=== PATIENT | female | born 1925 | race Caucasian/White ===

== ENCOUNTER 2016-10-14 16:01 | Inpatient (IN) | payer MEDICARE, BC ==
[2016-10-14] MEDS ORDERED: NS 0.9% 1000 ML* 500 ML IV ONE (16:54)
[2016-10-14] MEDS ORDERED: Acetaminophen TAB* 325 MG PO ONE (16:54)
--- NOTE | 2016-10-14 17:32 | RAD ---
HISTORY: Altered mental status COMPARISONS: March 15, 2015 TECHNIQUE: Multiple contiguous axial CT scans were obtained of the head without intravenous contrast. FINDINGS: HEMORRHAGE/INFARCT: There is no hemorrhage or acute infarct. MASSES/SHIFT: There is no mass or shift. EXTRA-AXIAL SPACES: There are no extra-axial fluid collections. SULCI AND VENTRICLES: There is diffuse and proportional enlargement of the sulci and ventricles. CEREBRUM: There is hypoattenuation of the periventricular and subcortical white matter. BRAINSTEM: There are no focal parenchymal abnormalities. CEREBELLUM: There are no focal parenchymal abnormalities. VESSELS: There is calcification of the cavernous segments of the internal carotid arteries bilaterally and of the distal vertebral arteries bilaterally. PARANASAL SINUSES: The paranasal sinuses are clear. ORBITS: The orbits are unremarkable. BONES AND SOFT TISSUE: No bone or soft tissue abnormalities are noted. OTHER: None IMPRESSION: NO ACUTE INTRACRANIAL PATHOLOGY. DIFFUSE INVOLUTIONAL CHANGE WITH CHRONIC SMALL VESSEL ISCHEMIC CHANGES.
--- NOTE | 2016-10-14 17:42 | RAD ---
HISTORY: Altered mental status COMPARISONS: November 01, 2013 VIEWS: 2: Frontal and lateral views of the chest. FINDINGS: CARDIOMEDIASTINAL SILHOUETTE: The cardiomediastinal silhouette is normal. KAL: The kal are normal. PLEURA: The costophrenic angles are sharp. No pleural abnormalities are noted. LUNG PARENCHYMA: There is hyperinflation with flattening of the diaphragm and expansion of the AP diameter of the chest. ABDOMEN: The upper abdomen is clear. There is no subphrenic gas. BONES AND SOFT TISSUES: There is diffuse osteopenia. Degenerative changes are noted of the shoulder and spine OTHER: None. IMPRESSION: HYPERINFLATION, CONSISTENT WITH COPD. NO ACTIVE CARDIOPULMONARY DISEASE.
[2016-10-14 18:21] LABS: Hematocrit 41 % (35-47); Hemoglobin 13.6 g/dl (12.0-16.0); Mean Corpuscular HGB Conc 33 g/dl (31-36); Mean Corpuscular Hemoglobin 31 pg (27-31); Mean Corpuscular Volume 93 fL (80-97); Mean Platelet Volume 10 um3 (7.4-10.4); Red Blood Count 4.41 10^6/ul (4.0-5.4); Red Cell Distribution Width 15 % (10.5-15); White Blood Count 9.4 10^3/ul (3.5-10.8)
[2016-10-14 18:39] LABS: ALT 9 U/L (7-52); AST 22 U/L (13-39); Albumin 3.9 g/dL (3.2-5.2); Alkaline Phosphatase 65 U/L (34-104); Anion Gap 9 mmol/L (2-11); BUN/Creatinine Ratio 21.9 (8-20); Blood Urea Nitrogen 14 mg/dL (6-24); C Reactive Protein 2.74 mg/L (< 5.00); CO2 Carbon Dioxide 26 mmol/L (22-32); Calcium 9.6 mg/dL (8.6-10.3); Chloride 100 mmol/L (101-111); EGFR African American 112.4 (>60); EGFR Non-African American 87.4 (>60); Globulin 3.5 g/dL (2-4); Glucose 83 mg/dL (70-100); Lipase < 10 U/L (11.0-82.0); Potassium 3.8 mmol/L (3.5-5.0); Sodium 135 mmol/L (133-145); Total Protein 7.4 g/dL (6.4-8.9)
[2016-10-14 19:09] LABS: Urine Bacteria 1+ (Absent); Urine Bilirubin Negative (Negative); Urine Glucose Negative (Negative); Urine Nitrite Negative (Negative)
[2016-10-14] MEDS ORDERED: Levofloxacin TAB* 500 MG PO ONE (20:15)
[2016-10-14] MEDS ORDERED: Levofloxacin 500 MG IVPREMIX(* 500 MG/100 ML BAG IVPB ONE (20:25)
--- NOTE | 2016-10-14 20:34 | ED ---
shalom Bang Timothy, nichole for Meet Griffith on 10/14/16 at 2027 . Progress - Progress Note Progress Note: Susanna Reno is an 89 yo female presenting to [facility] with confusion, speech impairment, and generally not herself. Her MHx includes DM, CAD, anxiety. Pt was signed out by Dr. Xie pending UA results and disposition. Re-Evaluation - Re-Evaluation First Eval Re-Evaluation Time: 20:27 Change: Unchanged Comment: Discussed results of UA with Pt and family. Family would prefer if Pt is admitted for observation tonight. Course/Dx - Course Course Of Treatment: Susanna Reno is an 89 yo female presenting to [facility] with confusion, speech impairment, and generally not herself. Pt medication list reviewed this visit. After clinical examination and discussion with Dr. Huerta and Pt family, Pt will be admitted to [facility] for further observation, evaluation, and Tx of UTI, urosepsis, AMS. - Diagnoses Provider Diagnoses: UTI (urinary tract infection), urosepsis, Altered mental status - Provider Notifications Discussed Care Of Patient With: Yuri Huerta - Discussed Pt condition, accepts Pt for admission Time Discussed With Above Provider: 20:22 Instructed by Provider To: Admit As Inpatient The documentation as recorded by the shalom rivera Timothy accurately reflects the service I personally performed and the decisions made by , Meet Griffith.
[2016-10-14] MEDS ORDERED: Artificial Tears* 15 ML BTL BOTH EYES PRN (21:50)
[2016-10-14] MEDS ORDERED: Loperamide CAP* 2 MG PO PRN (21:50)
[2016-10-14] MEDS ORDERED: Acetaminophen TAB* 325 MG PO PRN (21:50)
[2016-10-14] MEDS ORDERED: Magnesium Hydroxide LIQ* 30 ML UDC PO PRN (21:50)
[2016-10-14] MEDS: NS 0.9% 1000 ML* 1,000 ML IV SCH (23:44)
[2016-10-14] MEDS: Nystatin TOP POWDER* 15 GM BTL TOPICAL SCH (23:49)
--- NOTE | 2016-10-15 00:40 | HP ---
CC: Alexis Anaya MD * HISTORY AND PHYSICAL: DATE OF ADMISSION: 10/14/16 PRIMARY CARE PHYSICIAN: Alexis Anaya MD ATTENDING PHYSICIAN: Dr. Yuri Huerta * (dictated by Margaret William NP). CHIEF COMPLAINT: Confusion, speech impairment and is not feeling herself. HISTORY OF PRESENT ILLNESS: Ms. Reno is an 89-year-old female with a past medical history significant for diabetes mellitus, coronary artery disease, status post [place], anxiety, atrial fibrillation, glaucoma, iron deficiency anemia, chronic kidney disease stage 3, hyperlipidemia, hypothyroidism, congestive heart failure, history of C2 cervical fracture, uterine cancer and hypertension , who presents to the emergency room from [facility] for altered mental status. The patient's daughter states that she noticed that her mother was disoriented today, complaining of a headache, had had some vomiting, and loss of appetite. The patient denied any fever, chills, chest pain and shortness of breath. She did report some lightheadedness and dizziness earlier today. She also reports burning with urination and that she has a yeast infection. She states that she has had a poor appetite, but has been trying to drink fluids. Due to concern for the patient's health status, EMS was called. Upon EMS arrival, it is felt that the patient possibly had some slurred speech, but no other neurological deficits. The patient was brought to the emergency room for further evaluation. While in the emergency room, the patient labs that were significant for slightly low platelet count of 138, which is consistent with her previous results. She had no leukocytosis. She was afebrile. Her chloride was slightly low at 100 and her BUN and creatinine ratio was 21.9. The patient had a BMP of 179. She had a urinalysis significant for leukocyte esterase 1+, wbc' s 3+, squamous epithelial cells present and bacteria 1+. The patient had a chest x-ray showing hyperinflation consistent with COPD. No active cardiopulmonary disease. The patient had a brain CT showing no acute intracranial pathology. The patient had an EKG showing an atrial fibrillation with a rate of 99. The patient received 500 mL of normal saline and Levaquin. Hospitalists were asked evaluate the patient for admission. PAST MEDICAL HISTORY: 1. Diabetes mellitus. 2. Coronary artery disease. 3. Anxiety. 4. Atrial fibrillation. 5. Vitamin D deficiency. 6. Glaucoma. 7. Iron deficiency anemia. 8. GERD. 9. Chronic kidney disease stage 3. 10. Hyperlipidemia. 11. Congestive heart failure 12. Hypothyroidism 13. Uterine cancer. 14. C2 cervical spine fracture. 15. Hypertension. 16. History of NSTEMI. 17. DVT. PAST SURGICAL HISTORY: 1. Status post appendectomy. 2. Status post cholecystectomy. 3. Status post right hip ORIF. 4. Status post hysterectomy and oophorectomy. 5. Status post [place] filter placement. HOME MEDICATIONS: Include: 1. Acetaminophen 650 mg oral daily at bedtime as needed. 2. Aspirin 81 mg oral daily. 3. Atorvastatin 10 mg oral daily at bedtime. 4. Isosorbide mononitrate ER 60 mg oral daily at bedtime. 5. Lantus insulin 12 units subcutaneous daily at bedtime. 6. Levothyroxine 100 mcg oral daily. 7. Omeprazole 20 mg oral daily. 8. Artificial Tear ointment applied to both eyes at bedtime. 9. Timolol 0.5% ophthalmic solution 1 drop to both eyes daily. 10. Travoprost Z 0.004% one drop to both eyes daily at bedtime. 11. Vitamin B12 1000 mcg oral every other day. 12. Eliquis 5 mg oral twice daily. 13. Vitamin D 50,000 units oral monthly. 14. Metformin 500 mg oral twice daily. 15. Artificial Tears 1 drop to both eyes every 2 hours as needed for dry eye. 16. Tums 1000 mg oral daily with meals. 17. Milk of magnesia 30 mL oral daily as needed for constipation. 18. Triamcinolone 0.1% cream apply topical every evening. 19. Nystatin powder applied topical 3 times daily. 20. Imodium 2 mg oral twice daily as needed for loose stools. ALLERGIES: PENICILLIN and SULFA. FAMILY HISTORY: The patient has a sister with a history of coronary artery disease and diabetes mellitus. The patient had a daughter who passed from metastatic breast cancer and a second daughter with a history of breast cancer. SOCIAL HISTORY: The patient denies smoking, alcohol, recreational drug use. She resides at [facility]. The patient's daughter, Arielle Rutherford, will be her surrogate decision maker in the event that she is unable to make decisions for herself. REVIEW OF SYSTEMS: I performed a 14-point review of systems. All the pertinent positives and negatives are mentioned in the history of present illness. The remaining review of systems is negative. PHYSICAL EXAMINATION GENERAL APPEARANCE: The patient is alert, pleasant, appears to be in no acute distress. VITAL SIGNS: Temperature 97.7, heart rate 86, respiratory rate 13, O2 sat 95% on room air, blood pressure 147/69. HEENT: Normocephalic, atraumatic. Pupils are equal and reactive to light. Extraocular movements are intact. RESPIRATORY: There is no accessory muscle use. Lungs are clear to auscultation bilaterally. CARDIOVASCULAR: Regular rate. S1 and S2 present. The patient has a grade 3/6 systolic murmur heard best at the left upper sternal border. ABDOMEN: Soft, nontender, nondistended. There are bowel sounds present x4. EXTREMITIES: There is no lower extremity edema. DP and PT pulses are 2+ and symmetric. MUSCULOSKELETAL: There is no clubbing or cyanosis noted. The patient exhibits good strength in all extremities. NEUROLOGICAL: The patient is alert and oriented x3. At times does have some slightly slurred speech and is difficult to understand. Cranial nerves II through XII are grossly intact. PSYCHOLOGICAL: Calm and cooperative. SKIN: The patient has a yeast-like rash to her perineal area. DIAGNOSTIC STUDIES/LABORATORY DATA: Sodium 135, potassium 3.8, chloride 100, CO2 26, BUN 14, creatinine 0.64, and glucose 83. White blood cell count 9.4, hemoglobin 13.6, hematocrit 41, and platelet count 138. Urinalysis has 2+ protein, trace ketones, 1+ leukocyte esterase, 3+ wbc's, squamous epithelial cells present, and 1+ bacteria. EKG shows an atrial fibrillation with a rate of 99. This EKG is similar to previous EKGs from 09/09/15. Chest x-ray from today. Radiologist's impression: Hyperinflation consistent with COPD, no active cardiopulmonary disease. Brain CT from today. Radiologist's impression: No active intracranial pathology, diffuse involutional changes with chronic small vessel ischemic changes. IMPRESSION: Ms. Reno is an 89-year-old female with a past medical history significant for hypertension; hyperlipidemia; coronary artery disease, status post non-ST elevation myocardial infraction; atrial fibrillation in Eliquis; hypothyroidism; diabetes mellitus; chronic kidney disease stage 3; and history of C2 cervical fracture who presents to the emergency room with concern for confusion, generally is not feeling well and was found to have a urinary tract infection. She will be admitted as an observation for urinary tract infection. ASSESSMENT AND PLAN: 1. Urinary tract infection. The patient will receive some gentle IV hydration overnight. She will be continued on Levaquin. The patient is currently afebrile and has no leukocytosis. 2. Altered mental status. I suspect this is secondary to the patient's underlying urinary tract infection. Per her family, she is getting closer to her baseline at this point. Her head CT was negative. 4. Thrombocytopenia. The patient appears to be at her baseline. 5. Diabetes mellitus. We will continue the patient on her home Lantus and metformin. She will have fingersticks at takes a.c. and h.s. 6. History of coronary artery disease and status post myocardial infraction. The patient will be continued on her home aspirin, statin, and isosorbide mononitrate. 7. Atrial fibrillation. The patient is in a controlled atrial fibrillation. She will be continued on her home Eliquis. 8. Glaucoma. The patient will be continued on her home Travatan eye drops. 9. Hypothyroidism. The patient will be continued on her home levothyroxine. 10. Yeast infection. We will continue the patient on Nystatin topical powder three times daily. 11. History of hypertension. The patient's blood pressures are controlled at this time. For now, we will continue her Imdur. 12. Chronic kidney disease, stage 3. The patient's creatinine is at baseline. 13. Fluids, electrolytes, and nutrition. The patient will be on a consistent carbohydrate diet. 14. Code status: DNR/DNI. 15. DVT prophylaxis. The patient is a highest risk and will be continued on her home Eliquis. 16. Disposition: Observation for urinary tract infection. TIME SPENT: Time for this admission was 60 minutes, greater than half of that was spent with the patient and family discussing medications, past medical history, and events leading up to her arrival today and performing the physical examination. The case has been reviewed with the attending, Dr. Huerta, who agrees with the plan of care. Reviewed by AILYN MUNOZ 10/15/16 1357 [id number]/[facility] #: [id number] KENDAL
[2016-10-15] MEDS: Levothyroxine TAB* 100 MCG TAB PO SCH (05:54)
[2016-10-15 06:42] LABS: Hematocrit 38 % (35-47); Hemoglobin 12.5 g/dl (12.0-16.0); Mean Corpuscular HGB Conc 33 g/dl (31-36); Mean Corpuscular Hemoglobin 31 pg (27-31); Mean Corpuscular Volume 94 fL (80-97); Mean Platelet Volume 10 um3 (7.4-10.4); Red Blood Count 4.07 10^6/ul (4.0-5.4); Red Cell Distribution Width 15 % (10.5-15); White Blood Count 6.9 10^3/ul (3.5-10.8)
[2016-10-15 07:03] LABS: BUN/Creatinine Ratio 24.3 (8-20); Calcium 8.6 mg/dL (8.6-10.3); EGFR African American 101.3 (>60); EGFR Non-African American 78.8 (>60); Potassium 3.6 mmol/L (3.5-5.0)
--- NOTE | 2016-10-15 07:58 | PN ---
Subjective Date of Service: 10/15/16 Interval History: Ms. Reno reports that she continues to feel a bit "odd" in her head but she does feel better overall. She reports frequent urination but denies dysuria. She denies chest pain, SOB, nausea, or abdominal pain. Objective Active Medications: Acetaminophen (Tylenol Tab*) 650 mg PO Q4H PRN Apixaban (Eliquis*) 5 mg PO BID RONALD Artificial Tears (Lacrilube Oint*) 1 applic BOTH EYES BEDTIME RONALD Aspirin (Aspirin Low Dose Tab*) 81 mg PO DAILY RONALD Atorvastatin Calcium (Lipitor*) 10 mg PO BEDTIME RONALD Calcium Carbonate (Tums*) 1,000 mg PO AC RONALD Levofloxacin/Dextrose (Levaquin 500 Mg Ivpremix(*)) 500 mg in 100 mls @ 100 mls /hr IVPB Q24H RONALD Sodium Chloride (Ns 0.9% 1000 Ml*) 1,000 mls @ 75 mls/hr IV PER RATE [facility] Insulin Glargine (Lantus(*)) 12 units SUBCUT BEDTIME RONALD Isosorbide Mononitrate (Imdur Er Tab*) 60 mg PO BEDTIME RONALD Latanoprost (Xalatan 0.005%*) 1 drop BOTH EYES BEDTIME RONALD Levothyroxine Sodium (Synthroid Tab*) 100 mcg PO 0600 RONALD Loperamide HCl (Imodium Cap*) 2 mg PO BID PRN Magnesium Hydroxide (Milk Of Magnesia Liq*) 30 ml PO DAILY PRN Metformin HCl (Glucophage*) 500 mg PO BID WITH MEALS RONALD Nystatin (Nystatin Top Powder*) 1 applic TOPICAL TID RONALD Omeprazole (Prilosec Cap*) 20 mg PO DAILY@0730 RONALD Polyvinyl Alcohol (Polyvinyl Alcohol 1.4% Opth*) 1 drop BOTH EYES Q2H PRN Timolol Maleate (Timoptic Ophth.Soln 0.25%) 2 drop BOTH EYES DAILY [facility] Vital Signs 10/14/16 10/14/16 10/14/16 22:30 23:25 23:35 Temperature 97.4 F 97.4 F Pulse Rate 75 82 82 Respiratory 19 17 Rate Blood Pressure 108/57 109/75 109/75 (mmHg) O2 Sat by Pulse 96 98 98 Oximetry 10/15/16 10/15/16 03:31 07:45 Temperature 97.4 F Pulse Rate 70 69 Respiratory 16 16 Rate Blood Pressure 131/77 123/69 (mmHg) O2 Sat by Pulse 97 97 Oximetry Oxygen Devices in Use Now: None Appearance: Elderly female lying in bed in NAD Eyes: No Scleral Icterus Ears/Nose/Mouth/Throat: Mucous Membranes Moist Neck: Trachea Midline Respiratory: Symmetrical Chest Expansion and Respiratory Effort, Clear to Auscultation Cardiovascular: NL Sounds; No Murmurs; No JVD, No Edema Abdominal: NL Sounds; No Tenderness; No Distention Lymphatic: No Cervical Adenopathy Extremities: No Edema Skin: No Rash or Ulcers Neurological: NL Muscle Strength and Tone, - - A bit lethargic but awakens easily to voice, oriented x 3 Nutrition: Taking PO's Result Diagrams: 10/15/16 06:15 10/15/16 06:15 Microbiology and Other Data: Microbiology 10/14/16 23:43 Nasal Screen MRSA (PCR)(DEEPALI) - Final Nasal Mrsa Negative Assess/Plan/Problems-Billing Assessment: Ms. Reno is an 89 yo female with a PMH of DM, CAD, CHF who was admitted on with UTI. - Patient Problems (1) UTI (urinary tract infection) Comment: - WBC normal, afebrile. - Continue levaquin. (2) CAD (coronary artery disease) Comment: - Asymptomatic. - Continue ASA, atorvastatin, isosorbide BB with hold parameters. (3) HTN (hypertension) Comment: - BP well controlled. - Only on isosorbide outpatient. (4) Type 2 diabetes mellitus Comment: - Hold metformin. - Continue lantus with lispro SSI coverage with meals. (5) CKD (chronic kidney disease) Comment: - creatinine normal (6) Hypothyroidism Comment: - TSH 0.23. - Continue levothyroxine. (7) Afib Comment: - Rate controlled. - Continue eliquis. (8) DNR (do not resuscitate) (9) DVT prophylaxis Comment: - Continue eliquis. Status and Disposition: OBV to inpatient with need for additional night in hospital with continued AMS. Anticipate discharge back to [facility] when medically stable.
[2016-10-15] MEDS ORDERED: metFORMIN* 500 MG TAB PO SCH (08:00)
[2016-10-15] MEDS: Calcium Carbonate CHEW TAB* 500 MG (TUMS) PO SCH ×3 (09:25→18:32)
[2016-10-15] MEDS: Apixaban* 5 MG TAB PO SCH ×2 (09:29→20:14)
[2016-10-15] MEDS: Aspirin Low Dose CHEW TAB* 81 MG PO SCH (09:29)
[2016-10-15] MEDS: Omeprazole CAP* 20 MG PO SCH (09:29)
[2016-10-15] MEDS: Timolol 0.25% OPHTH.SOLN* BTL BOTH EYES SCH (09:30)
[2016-10-15] MEDS: Nystatin TOP POWDER* 15 GM BTL TOPICAL SCH ×3 (09:30→20:15)
[2016-10-15] MEDS: NS 0.9% 1000 ML* 1,000 ML IV SCH (15:30)
--- NOTE | 2016-10-15 19:48 | ED ---
Mikal Bang Alfonso, scribed for Hernando Xie MD on 10/14/16 at 1656 . Altered Mental Status - HPI Summary HPI Summary: This patient is an 89 year old F BIBA to [facility] accompanied by son and daughter for AMS since noon today. Symptoms aggravated and alleviated by nothing. Her children report disorientation, confusion, headache, vomiting, and loss of appetite. PMHx of DM, CAD, and anxiety. 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 Timing: Constant, Lasting Hours - Noon Severity Initially: Moderate Severity Currently: Moderate Character: Confusion Aggravating Factor(s): Nothing Alleviating Factor(s): Nothing Associated Signs And Symptoms: Positive: Vomiting - Allergies/Home Medications Allergies/Adverse Reactions: Allergies Allergy/AdvReac Type Severity Reaction Status Date / Time Penicillins Allergy Swelling Verified 05/09/15 14:44 Sulfa Antibiotics Allergy Swelling Verified 05/09/15 14:44 Home Medications: Home Medications Apixaban* [Eliquis*] 5 mg PO BID 10/14/16 [History Confirmed 10/14/16] Artificial Tear Ointment [Refresh P.m] 1 oin BOTH EYES BEDTIME 10/14/16 [ History Confirmed 10/14/16] Artificial Tears* 15 ML BTL [Polyvinyl Alcohol 1.4% OPTH*] 1 drop BOTH EYES Q2H PRN 10/14/16 [History Confirmed 10/14/16] Calcium Carbonate CHEW TAB* [Tums*] 1,000 mg PO AC 10/14/16 [History Confirmed 10/14/16] Insulin GLARGINE(*) [Lantus(*)] 12 units SUBCUT BEDTIME 10/14/16 [History Confirmed 10/14/16] Loperamide CAP* [Imodium CAP*] 2 mg PO BID PRN 10/14/16 [History Confirmed 10/14] Magnesium Hydroxide LIQ* [Milk of Magnesia LIQ*] 30 ml PO DAILY PRN 10/14/16 [ History Confirmed 10/14/16] Nystatin TOP POWDER* 1 applic TOPICAL TID 10/14/16 [History Confirmed 10/14/16] Omeprazole CAP* [Prilosec CAP* 20 MG] 20 mg PO DAILY 10/14/16 [History Confirmed 10/14/16] Triamcinolone 0.1% CREAM(NF) [Kenalog 0.1% Cream (NF)] 1 applic TOPICAL QPM [History Confirmed 10/14/16] metFORMIN* [Glucophage 500 MG TAB *] 500 mg PO BID 10/14/16 [History Confirmed 10/14/16] PMH/Surg Hx/FS Hx/Imm Hx Endocrine/Hematology History: Reports: Hx Diabetes, Hx Thyroid Disease Denies: Hx Anemia Cardiovascular History: Reports: Hx Angina, Hx Coronary Artery Disease, Hx Hypercholesterolemia - Hyperlipidemia, Hx Hypertension, Hx Myocardial Infarction , Hx Rheumatic Fever - per daughter, Other Cardiovascular Problems/Disorders - Blockages that are unstentable Respiratory History: Reports: Hx Pneumonia GI History: Reports: Hx Gall Bladder Disease - cholecystectomy, Hx Irritable Bowel History: Reports: Hx Acute Renal Failure - 05/2013, Hx Chronic Renal Failure - CKD Stage 3 Musculoskeletal History: Reports: Hx Arthritis, Hx Osteoporosis - right hip fx Sensory History: Reports: Hx Contacts or Glasses, Hx Glaucoma, Hx Hearing Problem Opthamlomology History: Reports: Hx Contacts or Glasses, Hx Glaucoma Neurological History: Reports: Other Neuro Impairments/Disorders - C2 fx Psychiatric History: Reports: Hx Anxiety - Cancer History Cancer Type, 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 hysterectomy , oophrectomy,APPENDECTOMY Hx Anesthesia Reactions: No Infectious Disease History: No Infectious Disease History: Denies: Traveled Outside the [place] in Last 30 Days - Family History Known Family History: Positive: Cardiac Disease, Other - BREAST CA - Social History Alcohol Use: None Hx Substance Use: No Substance Use Type: Reports: None Hx Tobacco Use: No Smoking Status (MU): Never Smoked Tobacco Review of Systems Positive: Vomiting Neurological: Other - Positive AMS, disorientation, confusion, headache, and loss of appetite. All Other Systems Reviewed And Are Negative: Yes Physical Exam - Summary Physical Exam Summary: VITAL SIGNS: Reviewed. GENERAL: Patient is an elderly female who is lying comfortable in the stretcher. Patient is not in any acute respiratory distress. HEAD AND FACE: No signs of trauma. No ecchymosis, hematomas or skull depressions. No sinus tenderness. EYES: PERRLA, EOMI x 2, No injected conjunctiva, no nystagmus. EARS: Hearing grossly intact. Ear canals and tympanic membranes are within normal limits. MOUTH: Oropharynx within normal limits. NECK: Supple, trachea is midline, no adenopathy, no JVD, no carotid bruit, no c- spine tenderness, neck with full ROM. CHEST: Symmetric, no tenderness at palpation LUNGS: Clear to auscultation bilaterally. No wheezing or crackles. CVS: Regular rate and rhythm, S1 and S2 present, no murmurs or gallops appreciated. ABDOMEN: Soft, non-tender. No signs of distention. No rebound no guarding, and no masses palpated. Bowel sounds are normal. EXTREMITIES: FROM in all major joints, no edema, no cyanosis or clubbing. NEURO: Alert. Not oriented. No acute neurological deficits. Speech is normal and follows commands. SKIN: Dry and warm Triage Information Reviewed: Yes Vital Signs On Initial Exam: Initial Vitals Temp Pulse Resp BP Pulse Ox 97.7 F 91 16 165/101 100 10/14/16 16:30 10/14/16 16:30 10/14/16 16:30 10/14/16 16:30 10/14/16 16:30 Vital Signs Reviewed: Yes Diagnostics - Vital Signs Vital Signs Temp Pulse Resp BP Pulse Ox 10/14/16 16:49 97.7 F 91 16 165/103 99 10/14/16 16:30 97.7 F 91 16 165/101 100 - Laboratory Lab Results: Lab Results 10/14/16 10/14/16 10/14/16 Range/Units 18:01 18:01 18:01 WBC 9.4 (3.5-10.8) 10^3/ul RBC 4.41 (4.0-5.4) 10^6/ul Hgb 13.6 (12.0-16.0) g/dl Hct 41 (35-47) % MCV 93 (80-97) fL MCH 31 (27-31) pg MCHC 33 (31-36) g/dl RDW 15 (10.5-15) % Plt Count 138 L (150-450) 10^3/ul MPV 10 (7.4-10.4) um3 Neut % (Auto) 69.6 (38-83) % Lymph % (Auto) 22.4 L (25-47) % [place] % (Auto) 5.5 (1-9) % Eos % (Auto) 1.8 (0-6) % Baso % (Auto) 0.7 (0-2) % Absolute Neuts (auto) 6.5 (1.5-7.7) 10^3/ul Absolute Lymphs (auto) 2.1 (1.0-4.8) 10^3/ul Absolute Monos (auto) 0.5 (0-0.8) 10^3/ul Absolute Eos (auto) 0.2 (0-0.6) 10^3/ul Absolute Basos (auto) 0.1 (0-0.2) 10^3/ul Absolute Nucleated RBC 0.01 10^3/ul Nucleated RBC % 0.1 Sodium 135 (133-145) mmol/L Potassium 3.8 (3.5-5.0) mmol/L Chloride 100 L (101-111) mmol/L Carbon Dioxide 26 (22-32) mmol/L Anion Gap 9 (2-11) mmol/L BUN 14 (6-24) mg/dL Creatinine 0.64 (0.51-0.95) mg/dL Est GFR ( Amer) 112.4 (>60) Est GFR (Non-Af Amer) 87.4 (>60) BUN/Creatinine Ratio 21.9 H (8-20) Glucose 83 (70-100) mg/dL POC Glucose (mg/dL) (74-106) mg/dL Lactic Acid 1.5 (0.5-2.0) mmol/L Calcium 9.6 (8.6-10.3) mg/dL Total Bilirubin 0.90 (0.2-1.0) mg/dL AST 22 (13-39) U/L ALT 9 (7-52) U/L Alkaline Phosphatase 65 (34-104) U/L C-Reactive Protein 2.74 (< 5.00) mg/L B-Natriuretic Peptide ( - 100) pg/mL Total Protein 7.4 (6.4-8.9) g/dL Albumin 3.9 (3.2-5.2) g/dL Globulin 3.5 (2-4) g/dL Albumin/Globulin Ratio 1.1 (1-3) Lipase < 10 L (11.0-82.0) U/L Urine Color Urine Appearance Urine pH (5-9) Ur Specific [place] (1.010-1.030) Urine Protein (Negative) Urine Ketones (Negative) Urine Blood (Negative) Urine Nitrate (Negative) Urine Bilirubin (Negative) Urine Urobilinogen (Negative) Ur Leukocyte Esterase (Negative) Urine WBC (Auto) (Absent) Urine RBC (Auto) (Absent) Ur Squamous Epith Cells (Absent) Urine Bacteria (Absent) Urine Glucose (Negative) 10/14/16 10/14/16 10/14/16 Range/Units 18:01 18:55 23:55 WBC (3.5-10.8) 10^3/ul RBC (4.0-5.4) 10^6/ul Hgb (12.0-16.0) g/dl Hct (35-47) % MCV (80-97) fL MCH (27-31) pg MCHC (31-36) g/dl RDW (10.5-15) % Plt Count (150-450) 10^3/ul MPV (7.4-10.4) um3 Neut % (Auto) (38-83) % Lymph % (Auto) (25-47) % [place] % (Auto) (1-9) % Eos % (Auto) (0-6) % Baso % (Auto) (0-2) % Absolute Neuts (auto) (1.5-7.7) 10^3/ul Absolute Lymphs (auto) (1.0-4.8) 10^3/ul Absolute Monos (auto) (0-0.8) 10^3/ul Absolute Eos (auto) (0-0.6) 10^3/ul Absolute Basos (auto) (0-0.2) 10^3/ul Absolute Nucleated RBC 10^3/ul Nucleated RBC % Sodium (133-145) mmol/L Potassium (3.5-5.0) mmol/L Chloride (101-111) mmol/L Carbon Dioxide (22-32) mmol/L Anion Gap (2-11) mmol/L BUN (6-24) mg/dL Creatinine (0.51-0.95) mg/dL Est GFR ( Amer) (>60) Est GFR (Non-Af Amer) (>60) BUN/Creatinine Ratio (8-20) Glucose (70-100) mg/dL POC Glucose (mg/dL) 101 (74-106) mg/dL Lactic Acid (0.5-2.0) mmol/L Calcium (8.6-10.3) mg/dL Total Bilirubin (0.2-1.0) mg/dL AST (13-39) U/L ALT (7-52) U/L Alkaline Phosphatase (34-104) U/L C-Reactive Protein (< 5.00) mg/L B-Natriuretic Peptide 179 H ( - 100) pg/mL Total Protein (6.4-8.9) g/dL Albumin (3.2-5.2) g/dL Globulin (2-4) g/dL Albumin/Globulin Ratio (1-3) Lipase (11.0-82.0) U/L Urine Color Yellow Urine Appearance Cloudy Urine pH 7.0 (5-9) Ur Specific [place] 1.014 (1.010-1.030) Urine Protein 2+(100 mg/dl) H (Negative) Urine Ketones Trace H (Negative) Urine Blood Negative (Negative) Urine Nitrate Negative (Negative) Urine Bilirubin Negative (Negative) Urine Urobilinogen Negative (Negative) Ur Leukocyte Esterase 1+ H (Negative) Urine WBC (Auto) 3+(>20/hpf) H (Absent) Urine RBC (Auto) Absent (Absent) Ur Squamous Epith Cells Present H (Absent) Urine Bacteria 1+ H (Absent) Urine Glucose Negative (Negative) 10/15/16 10/15/16 10/15/16 Range/Units 06:15 06:15 07:42 WBC 6.9 (3.5-10.8) 10^3/ul RBC 4.07 (4.0-5.4) 10^6/ul Hgb 12.5 (12.0-16.0) g/dl Hct 38 (35-47) % MCV 94 (80-97) fL MCH 31 (27-31) pg MCHC 33 (31-36) g/dl RDW 15 (10.5-15) % Plt Count 137 L (150-450) 10^3/ul MPV 10 (7.4-10.4) um3 Neut % (Auto) 48.3 (38-83) % Lymph % (Auto) 37.4 (25-47) % [place] % (Auto) 8.6 (1-9) % Eos % (Auto) 4.9 (0-6) % Baso % (Auto) 0.8 (0-2) % Absolute Neuts (auto) 3.3 (1.5-7.7) 10^3/ul Absolute Lymphs (auto) 2.6 (1.0-4.8) 10^3/ul Absolute Monos (auto) 0.6 (0-0.8) 10^3/ul Absolute Eos (auto) 0.3 (0-0.6) 10^3/ul Absolute Basos (auto) 0.1 (0-0.2) 10^3/ul Absolute Nucleated RBC 0 10^3/ul Nucleated RBC % 0 Sodium 134 (133-145) mmol/L Potassium 3.6 (3.5-5.0) mmol/L Chloride 101 (101-111) mmol/L Carbon Dioxide 24 (22-32) mmol/L Anion Gap 9 (2-11) mmol/L BUN 17 (6-24) mg/dL Creatinine 0.70 (0.51-0.95) mg/dL Est GFR ( Amer) 101.3 (>60) Est GFR (Non-Af Amer) 78.8 (>60) BUN/Creatinine Ratio 24.3 H (8-20) Glucose 75 (70-100) mg/dL POC Glucose (mg/dL) 89 (74-106) mg/dL Lactic Acid (0.5-2.0) mmol/L Calcium 8.6 (8.6-10.3) mg/dL Total Bilirubin (0.2-1.0) mg/dL AST (13-39) U/L ALT (7-52) U/L Alkaline Phosphatase (34-104) U/L C-Reactive Protein (< 5.00) mg/L B-Natriuretic Peptide ( - 100) pg/mL Total Protein (6.4-8.9) g/dL Albumin (3.2-5.2) g/dL Globulin (2-4) g/dL Albumin/Globulin Ratio (1-3) Lipase (11.0-82.0) U/L Urine Color Urine Appearance Urine pH (5-9) Ur Specific [place] (1.010-1.030) Urine Protein (Negative) Urine Ketones (Negative) Urine Blood (Negative) Urine Nitrate (Negative) Urine Bilirubin (Negative) Urine Urobilinogen (Negative) Ur Leukocyte Esterase (Negative) Urine WBC (Auto) (Absent) Urine RBC (Auto) (Absent) Ur Squamous Epith Cells (Absent) Urine Bacteria (Absent) Urine Glucose (Negative) 10/15/16 Range/Units 12:26 WBC (3.5-10.8) 10^3/ul RBC (4.0-5.4) 10^6/ul Hgb (12.0-16.0) g/dl Hct (35-47) % MCV (80-97) fL MCH (27-31) pg MCHC (31-36) g/dl RDW (10.5-15) % Plt Count (150-450) 10^3/ul MPV (7.4-10.4) um3 Neut % (Auto) (38-83) % Lymph % (Auto) (25-47) % [place] % (Auto) (1-9) % Eos % (Auto) (0-6) % Baso % (Auto) (0-2) % Absolute Neuts (auto) (1.5-7.7) 10^3/ul Absolute Lymphs (auto) (1.0-4.8) 10^3/ul Absolute Monos (auto) (0-0.8) 10^3/ul Absolute Eos (auto) (0-0.6) 10^3/ul Absolute Basos (auto) (0-0.2) 10^3/ul Absolute Nucleated RBC 10^3/ul Nucleated RBC % Sodium (133-145) mmol/L Potassium (3.5-5.0) mmol/L Chloride (101-111) mmol/L Carbon Dioxide (22-32) mmol/L Anion Gap (2-11) mmol/L BUN (6-24) mg/dL Creatinine (0.51-0.95) mg/dL Est GFR ( Amer) (>60) Est GFR (Non-Af Amer) (>60) BUN/Creatinine Ratio (8-20) Glucose (70-100) mg/dL POC Glucose (mg/dL) 127 H (74-106) mg/dL Lactic Acid (0.5-2.0) mmol/L Calcium (8.6-10.3) mg/dL Total Bilirubin (0.2-1.0) mg/dL AST (13-39) U/L ALT (7-52) U/L Alkaline Phosphatase (34-104) U/L C-Reactive Protein (< 5.00) mg/L B-Natriuretic Peptide ( - 100) pg/mL Total Protein (6.4-8.9) g/dL Albumin (3.2-5.2) g/dL Globulin (2-4) g/dL Albumin/Globulin Ratio (1-3) Lipase (11.0-82.0) U/L Urine Color Urine Appearance Urine pH (5-9) Ur Specific [place] (1.010-1.030) Urine Protein (Negative) Urine Ketones (Negative) Urine Blood (Negative) Urine Nitrate (Negative) Urine Bilirubin (Negative) Urine Urobilinogen (Negative) Ur Leukocyte Esterase (Negative) Urine WBC (Auto) (Absent) Urine RBC (Auto) (Absent) Ur Squamous Epith Cells (Absent) Urine Bacteria (Absent) Urine Glucose (Negative) Result Diagrams: 10/15/16 06:15 10/15/16 06:15 Lab Statement: Any lab studies that have been ordered have been reviewed, and results considered in the medical decision making process. - Radiology CXR Radiology Interpretation Completed By: Radiologist - HYPERINFLATION, CONSISTENT WITH COPD. NO ACTIVE CARDIOPULMONARY DISEASE. - CT Brain CT CT Interpretation Completed By: Radiologist - NO ACUTE INTRACRANIAL PATHOLOGY. DIFFUSE INVOLUTIONAL CHANGE WITH CHRONIC SMALL VESSEL ISCHEMIC CHANGES. - EKG 1732 Cardiac Rate: NL - BPM 99 EKG Rhythm: Atrial Fibrillation EKG Comparison: Other - ST depression in V4, V5, and V6 new from 09/09/15 Altered Mental Statu Course/Dx - Course Course Of Treatment: This patient is an 89 year old F BIBA to [facility] accompanied by son and daughter for AMS since noon today. Symptoms aggravated and alleviated by nothing. Her children report disorientation, confusion, headache, vomiting, and loss of appetite. PMHx of DM, CAD, and anxiety. Assessment/Plan: Test results without any significant abnormalities except for BNP of 179 and chloride of 100. Brain CT reveals NO ACUTE INTRACRANIAL PATHOLOGY. DIFFUSE INVOLUTIONAL CHANGE WITH CHRONIC SMALL VESSEL ISCHEMIC CHANGES. CXR reveals HYPERINFLATION, CONSISTENT WITH COPD. NO ACTIVE CARDIOPULMONARY DISEASE. EKG reveals A-Fib. In the ED course we gave the patient IV fluids. We are still waiting for a urinalysis. Nurse will straight cath the patient. At this time there is a change of shift. The patient will be signed out to Dr. Griffith for follow up. If the patient has a UTI he will treat with abx and reassess the patient. He will decide if the patient can be treated as an outpatient or be admitted accordingly. - Diagnoses Discharge Diagnoses: UTI (urinary tract infection), urosepsis, Altered mental status Discharge - Discharge Plan Condition: Stable Disposition: HOME The documentation as recorded by the Mikal rivera Alfonso accurately reflects the service I personally performed and the decisions made by , Hernando Xie MD.
[2016-10-15] MEDS ORDERED: Levofloxacin 500 MG IVPREMIX(* 500 MG/100 ML BAG IVPB SCH (20:00)
[2016-10-15] MEDS ORDERED: Levofloxacin TAB* 250 MG PO SCH (20:00)
[2016-10-15] MEDS ORDERED: Latanoprost 0.005%* 2.5 ml BTL BOTH EYES SCH (21:00)
[2016-10-15] MEDS ORDERED: Artificial Tear OPHTH.OINT* 3.5 GM BOTH EYES SCH (21:00)
[2016-10-15] MEDS ORDERED: Atorvastatin* 10 MG TAB PO SCH (21:00)
[2016-10-15] MEDS ORDERED: Insulin GLARGINE(*) 1 UNITS UNIT SUBCUT SCH (21:00)
[2016-10-15] MEDS ORDERED: Isosorbide Mononitrate ER TAB* 60 MG PO SCH (21:00)
[2016-10-16] MEDS: Omeprazole CAP* 20 MG PO SCH (05:54)
[2016-10-16] MEDS: Calcium Carbonate CHEW TAB* 500 MG (TUMS) PO SCH ×2 (05:54→11:15)
[2016-10-16] MEDS: Levothyroxine TAB* 100 MCG TAB PO SCH (05:54)
[2016-10-16 08:12] VITALS: BP 165/91
[2016-10-16] MEDS: Apixaban* 5 MG TAB PO SCH (08:49)
[2016-10-16] MEDS: Aspirin Low Dose CHEW TAB* 81 MG PO SCH (08:50)
[2016-10-16] MEDS: Timolol 0.25% OPHTH.SOLN* BTL BOTH EYES SCH (08:52)
--- NOTE | 2016-10-16 10:06 | PN ---
Subjective Date of Service: 10/16/16 Interval History: Ms. Reno states that she is feeling much better than on arrival. She now only complains of a yeast infection under her abdominal folds. She denies other complaint including chest pain, SOB, nausea, or abdominal pain. Objective Active Medications: Acetaminophen (Tylenol Tab*) 650 mg PO Q4H PRN Apixaban (Eliquis*) 5 mg PO BID RONALD Artificial Tears (Lacrilube Oint*) 1 applic BOTH EYES BEDTIME RONALD Aspirin (Aspirin Low Dose Tab*) 81 mg PO DAILY RONALD Atorvastatin Calcium (Lipitor*) 10 mg PO BEDTIME RONALD Calcium Carbonate (Tums*) 1,000 mg PO AC RONALD Sodium Chloride (Ns 0.9% 1000 Ml*) 1,000 mls @ 75 mls/hr IV PER RATE RONALD Insulin Glargine (Lantus(*)) 12 units SUBCUT BEDTIME RONALD Isosorbide Mononitrate (Imdur Er Tab*) 60 mg PO BEDTIME RONALD Latanoprost (Xalatan 0.005%*) 1 drop BOTH EYES BEDTIME RONALD Levofloxacin (Levaquin Tab*) 250 mg PO 2000 RONALD Levothyroxine Sodium (Synthroid Tab*) 100 mcg PO 0600 RONALD Loperamide HCl (Imodium Cap*) 2 mg PO BID PRN Magnesium Hydroxide (Milk Of Magnesia Liq*) 30 ml PO DAILY PRN Nystatin (Nystatin Top Powder*) 1 applic TOPICAL TID RONALD Omeprazole (Prilosec Cap*) 20 mg PO DAILY@0730 RONALD Polyvinyl Alcohol (Polyvinyl Alcohol 1.4% Opth*) 1 drop BOTH EYES Q2H PRN Timolol Maleate (Timoptic Ophth.Soln 0.25%) 2 drop BOTH EYES DAILY [facility] Vital Signs 10/15/16 10/15/16 10/15/16 16:04 20:00 20:04 Temperature 97.3 F 97.7 F Pulse Rate 59 66 Respiratory 16 16 16 Rate Blood Pressure 125/53 125/67 (mmHg) O2 Sat by Pulse 97 97 Oximetry 10/15/16 10/16/16 10/16/16 23:25 04:22 07:53 Temperature 97.8 F 97.5 F 97.7 F Pulse Rate 55 53 75 Respiratory 16 16 16 Rate Blood Pressure 121/53 165/91 (mmHg) O2 Sat by Pulse 99 97 95 Oximetry 10/16/16 08:00 Temperature Pulse Rate Respiratory 16 Rate Blood Pressure (mmHg) O2 Sat by Pulse Oximetry Oxygen Devices in Use Now: None Appearance: Elderly female sitting up in chair in NAD Eyes: No Scleral Icterus Ears/Nose/Mouth/Throat: Mucous Membranes Moist Neck: Trachea Midline Respiratory: Symmetrical Chest Expansion and Respiratory Effort, Clear to Auscultation Cardiovascular: NL Sounds; No Murmurs; No JVD, No Edema Abdominal: NL Sounds; No Tenderness; No Distention Lymphatic: No Cervical Adenopathy Extremities: No Edema Skin: - - Erythema to inguinal and abdominal folds, no discharge or open areas Nutrition: Taking PO's Result Diagrams: 10/15/16 06:15 10/15/16 06:15 Additional Lab and Data: Lab Results 10/14/16 10/14/16 10/14/16 Range/Units 18:01 18:01 18:01 WBC 9.4 (3.5-10.8) 10^3/ul RBC 4.41 (4.0-5.4) 10^6/ul Hgb 13.6 (12.0-16.0) g/dl Hct 41 (35-47) % MCV 93 (80-97) fL MCH 31 (27-31) pg MCHC 33 (31-36) g/dl RDW 15 (10.5-15) % Plt Count 138 L (150-450) 10^3/ul MPV 10 (7.4-10.4) um3 Neut % (Auto) 69.6 (38-83) % Lymph % (Auto) 22.4 L (25-47) % [place] % (Auto) 5.5 (1-9) % Eos % (Auto) 1.8 (0-6) % Baso % (Auto) 0.7 (0-2) % Absolute Neuts (auto) 6.5 (1.5-7.7) 10^3/ul Absolute Lymphs (auto) 2.1 (1.0-4.8) 10^3/ul Absolute Monos (auto) 0.5 (0-0.8) 10^3/ul Absolute Eos (auto) 0.2 (0-0.6) 10^3/ul Absolute Basos (auto) 0.1 (0-0.2) 10^3/ul Absolute Nucleated RBC 0.01 10^3/ul Nucleated RBC % 0.1 Sodium 135 (133-145) mmol/L Potassium 3.8 (3.5-5.0) mmol/L Chloride 100 L (101-111) mmol/L Carbon Dioxide 26 (22-32) mmol/L Anion Gap 9 (2-11) mmol/L BUN 14 (6-24) mg/dL Creatinine 0.64 (0.51-0.95) mg/dL Est GFR ( Amer) 112.4 (>60) Est GFR (Non-Af Amer) 87.4 (>60) BUN/Creatinine Ratio 21.9 H (8-20) Glucose 83 (70-100) mg/dL POC Glucose (mg/dL) (74-106) mg/dL Lactic Acid 1.5 (0.5-2.0) mmol/L Calcium 9.6 (8.6-10.3) mg/dL Total Bilirubin 0.90 (0.2-1.0) mg/dL AST 22 (13-39) U/L ALT 9 (7-52) U/L Alkaline Phosphatase 65 (34-104) U/L C-Reactive Protein 2.74 (< 5.00) mg/L B-Natriuretic Peptide ( - 100) pg/mL Total Protein 7.4 (6.4-8.9) g/dL Albumin 3.9 (3.2-5.2) g/dL Globulin 3.5 (2-4) g/dL Albumin/Globulin Ratio 1.1 (1-3) Lipase < 10 L (11.0-82.0) U/L Urine Color Urine Appearance Urine pH (5-9) Ur Specific [place] (1.010-1.030) Urine Protein (Negative) Urine Ketones (Negative) Urine Blood (Negative) Urine Nitrate (Negative) Urine Bilirubin (Negative) Urine Urobilinogen (Negative) Ur Leukocyte Esterase (Negative) Urine WBC (Auto) (Absent) Urine RBC (Auto) (Absent) Ur Squamous Epith Cells (Absent) Urine Bacteria (Absent) Urine Glucose (Negative) 10/14/16 10/14/16 10/14/16 Range/Units 18:01 18:55 23:55 WBC (3.5-10.8) 10^3/ul RBC (4.0-5.4) 10^6/ul Hgb (12.0-16.0) g/dl Hct (35-47) % MCV (80-97) fL MCH (27-31) pg MCHC (31-36) g/dl RDW (10.5-15) % Plt Count (150-450) 10^3/ul MPV (7.4-10.4) um3 Neut % (Auto) (38-83) % Lymph % (Auto) (25-47) % [place] % (Auto) (1-9) % Eos % (Auto) (0-6) % Baso % (Auto) (0-2) % Absolute Neuts (auto) (1.5-7.7) 10^3/ul Absolute Lymphs (auto) (1.0-4.8) 10^3/ul Absolute Monos (auto) (0-0.8) 10^3/ul Absolute Eos (auto) (0-0.6) 10^3/ul Absolute Basos (auto) (0-0.2) 10^3/ul Absolute Nucleated RBC 10^3/ul Nucleated RBC % Sodium (133-145) mmol/L Potassium (3.5-5.0) mmol/L Chloride (101-111) mmol/L Carbon Dioxide (22-32) mmol/L Anion Gap (2-11) mmol/L BUN (6-24) mg/dL Creatinine (0.51-0.95) mg/dL Est GFR ( Amer) (>60) Est GFR (Non-Af Amer) (>60) BUN/Creatinine Ratio (8-20) Glucose (70-100) mg/dL POC Glucose (mg/dL) 101 (74-106) mg/dL Lactic Acid (0.5-2.0) mmol/L Calcium (8.6-10.3) mg/dL Total Bilirubin (0.2-1.0) mg/dL AST (13-39) U/L ALT (7-52) U/L Alkaline Phosphatase (34-104) U/L C-Reactive Protein (< 5.00) mg/L B-Natriuretic Peptide 179 H ( - 100) pg/mL Total Protein (6.4-8.9) g/dL Albumin (3.2-5.2) g/dL Globulin (2-4) g/dL Albumin/Globulin Ratio (1-3) Lipase (11.0-82.0) U/L Urine Color Yellow Urine Appearance Cloudy Urine pH 7.0 (5-9) Ur Specific [place] 1.014 (1.010-1.030) Urine Protein 2+(100 mg/dl) H (Negative) Urine Ketones Trace H (Negative) Urine Blood Negative (Negative) Urine Nitrate Negative (Negative) Urine Bilirubin Negative (Negative) Urine Urobilinogen Negative (Negative) Ur Leukocyte Esterase 1+ H (Negative) Urine WBC (Auto) 3+(>20/hpf) H (Absent) Urine RBC (Auto) Absent (Absent) Ur Squamous Epith Cells Present H (Absent) Urine Bacteria 1+ H (Absent) Urine Glucose Negative (Negative) 10/15/16 10/15/16 10/15/16 Range/Units 06:15 06:15 07:42 WBC 6.9 (3.5-10.8) 10^3/ul RBC 4.07 (4.0-5.4) 10^6/ul Hgb 12.5 (12.0-16.0) g/dl Hct 38 (35-47) % MCV 94 (80-97) fL MCH 31 (27-31) pg MCHC 33 (31-36) g/dl RDW 15 (10.5-15) % Plt Count 137 L (150-450) 10^3/ul MPV 10 (7.4-10.4) um3 Neut % (Auto) 48.3 (38-83) % Lymph % (Auto) 37.4 (25-47) % [place] % (Auto) 8.6 (1-9) % Eos % (Auto) 4.9 (0-6) % Baso % (Auto) 0.8 (0-2) % Absolute Neuts (auto) 3.3 (1.5-7.7) 10^3/ul Absolute Lymphs (auto) 2.6 (1.0-4.8) 10^3/ul Absolute Monos (auto) 0.6 (0-0.8) 10^3/ul Absolute Eos (auto) 0.3 (0-0.6) 10^3/ul Absolute Basos (auto) 0.1 (0-0.2) 10^3/ul Absolute Nucleated RBC 0 10^3/ul Nucleated RBC % 0 Sodium 134 (133-145) mmol/L Potassium 3.6 (3.5-5.0) mmol/L Chloride 101 (101-111) mmol/L Carbon Dioxide 24 (22-32) mmol/L Anion Gap 9 (2-11) mmol/L BUN 17 (6-24) mg/dL Creatinine 0.70 (0.51-0.95) mg/dL Est GFR ( Amer) 101.3 (>60) Est GFR (Non-Af Amer) 78.8 (>60) BUN/Creatinine Ratio 24.3 H (8-20) Glucose 75 (70-100) mg/dL POC Glucose (mg/dL) 89 (74-106) mg/dL Lactic Acid (0.5-2.0) mmol/L Calcium 8.6 (8.6-10.3) mg/dL Total Bilirubin (0.2-1.0) mg/dL AST (13-39) U/L ALT (7-52) U/L Alkaline Phosphatase (34-104) U/L C-Reactive Protein (< 5.00) mg/L B-Natriuretic Peptide ( - 100) pg/mL Total Protein (6.4-8.9) g/dL Albumin (3.2-5.2) g/dL Globulin (2-4) g/dL Albumin/Globulin Ratio (1-3) Lipase (11.0-82.0) U/L Urine Color Urine Appearance Urine pH (5-9) Ur Specific [place] (1.010-1.030) Urine Protein (Negative) Urine Ketones (Negative) Urine Blood (Negative) Urine Nitrate (Negative) Urine Bilirubin (Negative) Urine Urobilinogen (Negative) Ur Leukocyte Esterase (Negative) Urine WBC (Auto) (Absent) Urine RBC (Auto) (Absent) Ur Squamous Epith Cells (Absent) Urine Bacteria (Absent) Urine Glucose (Negative) 10/15/16 Range/Units 12:26 WBC (3.5-10.8) 10^3/ul RBC (4.0-5.4) 10^6/ul Hgb (12.0-16.0) g/dl Hct (35-47) % MCV (80-97) fL MCH (27-31) pg MCHC (31-36) g/dl RDW (10.5-15) % Plt Count (150-450) 10^3/ul MPV (7.4-10.4) um3 Neut % (Auto) (38-83) % Lymph % (Auto) (25-47) % [place] % (Auto) (1-9) % Eos % (Auto) (0-6) % Baso % (Auto) (0-2) % Absolute Neuts (auto) (1.5-7.7) 10^3/ul Absolute Lymphs (auto) (1.0-4.8) 10^3/ul Absolute Monos (auto) (0-0.8) 10^3/ul Absolute Eos (auto) (0-0.6) 10^3/ul Absolute Basos (auto) (0-0.2) 10^3/ul Absolute Nucleated RBC 10^3/ul Nucleated RBC % Sodium (133-145) mmol/L Potassium (3.5-5.0) mmol/L Chloride (101-111) mmol/L Carbon Dioxide (22-32) mmol/L Anion Gap (2-11) mmol/L BUN (6-24) mg/dL Creatinine (0.51-0.95) mg/dL Est GFR ( Amer) (>60) Est GFR (Non-Af Amer) (>60) BUN/Creatinine Ratio (8-20) Glucose (70-100) mg/dL POC Glucose (mg/dL) 127 H (74-106) mg/dL Lactic Acid (0.5-2.0) mmol/L Calcium (8.6-10.3) mg/dL Total Bilirubin (0.2-1.0) mg/dL AST (13-39) U/L ALT (7-52) U/L Alkaline Phosphatase (34-104) U/L C-Reactive Protein (< 5.00) mg/L B-Natriuretic Peptide ( - 100) pg/mL Total Protein (6.4-8.9) g/dL Albumin (3.2-5.2) g/dL Globulin (2-4) g/dL Albumin/Globulin Ratio (1-3) Lipase (11.0-82.0) U/L Urine Color Urine Appearance Urine pH (5-9) Ur Specific [place] (1.010-1.030) Urine Protein (Negative) Urine Ketones (Negative) Urine Blood (Negative) Urine Nitrate (Negative) Urine Bilirubin (Negative) Urine Urobilinogen (Negative) Ur Leukocyte Esterase (Negative) Urine WBC (Auto) (Absent) Urine RBC (Auto) (Absent) Ur Squamous Epith Cells (Absent) Urine Bacteria (Absent) Urine Glucose (Negative) Microbiology and Other Data: Microbiology 10/14/16 23:43 Nasal Screen MRSA (PCR)(DEEPALI) - Final Nasal Mrsa Negative Assess/Plan/Problems-Billing Assessment: Ms. Reno is an 89 yo female with a PMH of DM, CAD, CHF who was admitted on with UTI. - Patient Problems (1) UTI (urinary tract infection) Comment: - WBC normal, afebrile. - Urine culture with ecoli resistant to levaquin, switch to keflex now. If tolerates well, will discharge to complete course of oral antibiotics given improvement in symptoms/. (2) CAD (coronary artery disease) Comment: - Asymptomatic. - Continue ASA, atorvastatin, isosorbide BB with hold parameters. (3) HTN (hypertension) Comment: - BP well controlled. - Only on isosorbide outpatient. (4) Type 2 diabetes mellitus Comment: - Hold metformin. - Continue lantus with lispro SSI coverage with meals. (5) CKD (chronic kidney disease) Comment: - Creatinine normal. (6) Hypothyroidism Comment: - TSH 0.23. - Continue levothyroxine. (7) Afib Comment: - Rate controlled. - Continue eliquis. (8) DNR (do not resuscitate) (9) DVT prophylaxis Comment: - Continue eliquis. Status and Disposition: Inpatient. Discharge to [facility].
[2016-10-16] MEDS ORDERED: Dextrose 50% Syringe 50 ML* 25 GM/50 ML SYRINGE IV PUSH PRN (10:09)
[2016-10-16] MEDS ORDERED: Cephalexin CAP* 500 MG PO SCH (11:00)
[2016-10-16] MEDS: Nystatin TOP POWDER* 15 GM BTL TOPICAL SCH (11:13)
[2016-10-16] MEDS ORDERED: Insulin LISPRO* 1 UNITS UNIT SUBCUT SCH (11:30)
--- NOTE | 2016-10-16 11:53 | DS ---
CC: Dr. Anaya at [facility] MEDICINE DISCHARGE SUMMARY: DATE OF ADMISSION: 10/14/16 DATE OF DISCHARGE: 10/16/16 ATTENDING PHYSICIAN: Dr. Niecy Hernandez *(dictation provided by Ruthie Ferreira NP) . PRIMARY DIAGNOSIS: Urinary tract infection. SECONDARY DIAGNOSES: 1. Type 2 diabetes, insulin dependent. 2. Coronary artery disease. 3. Anxiety. 4. Atrial fibrillation, on Eliquis. 5. Vitamin D deficiency. 6. Glaucoma. 7. Iron deficiency anemia. 8. Gastroesophageal reflux disease. 9. Chronic kidney disease, stage 3. 10. Hyperlipidemia. 11. History of congestive heart failure, diastolic. 12. Hypothyroidism. 13. Uterine cancer. 14. History of C2 cervical spine fracture. 15. Hypertension. 16. History of non-ST elevation myocardial infarction. 17. History of deep vein thrombosis. PAST SURGICAL HISTORY: 1. Status post appendectomy. 2. Status post cholecystectomy. 3. Status post right hip ORIF. 4. Status post hysterectomy and oophorectomy. 5. Status post Mirna filter placement. DISCHARGE MEDICATIONS: New medications: 1. Vitamin C 500 mg p.o. daily (to prevent UTI). 2. Keflex 500 mg p.o. b.i.d. x5 days (for UTI). 3. Imodium 2 mg oral q.i.d. as needed for loose stools. Remainder of medications are: 1. Acetaminophen 750 mg as needed. 2. Aspirin 81 mg p.o. daily. 3. Atorvastatin 10 mg p.o. daily at bedtime. 4. Isosorbide mononitrate ER 60 mg p.o. at bedtime. 5. Lantus insulin 12 units subcu p.o. at bedtime. 6. Levothyroxine 100 mcg p.o. daily. 7. Omeprazole 20 mg p.o. daily. 8. Artificial tears ointment applied to both eyes at bedtime. 9. Timolol 0.5% ophthalmic solution 1 drop to both eyes daily. 10. Travatan Z 0.004% one drop to both eyes daily at bedtime. 11. Vitamin B12, 1000 mcg oral every other day. 12. Eliquis 5 mg oral twice daily. 13. Vitamin D 50,000 units oral monthly. 14. Metformin 500 mg p.o. oral twice daily. 15. Artificial tears to both eyes every 2 hours as needed for dry eye. 16. Tums 1000 mg oral daily with meals. 17. Milk of magnesia 30 mL oral daily as needed for constipation. 18. Triamcinolone 0.1% cream applied topical in the evening to dry skin. 19. Nystatin powder applied 3 times daily to inguinal and abdominal folds ( please apply abdominal pad to promote dryness and healing). HOSPITAL COURSE: Ms. Reno is an 89-year-old female with a past medical history as outlined above, who presented to the emergency room on 10/14/16 with concern for confusion, speech impairment, and not feeling herself. Please see dictated H and P from Margaret Mathias for complete details. In brief, the patient was noted to be disoriented, complaining of headache with some vomiting and loss of appetite. In the emergency room, she had no leukocytosis or fever. However, her UA was significant for leukocyte esterase 1+, wbc 3+, squamous epithelial cells present and bacteria 1+. Chest x-ray was negative. EKG showed Afib with a heart rate of 100. Ms. Reno was admitted to the hospital for treatment of symptomatic urinary tract infection. She was initially on Levaquin, but today it is noted that her E. coli urine culture was resistant to Levaquin. Despite this, she has improved with IV fluids. She is now maintaining well and sitting up, eating breakfast with no complaints. Plan to switch her over to Keflex 500 mg p.o. b.i.d. to complete a 5- day course of antibiotics. She will have 1 dose prior to being discharge to make sure she tolerates the medication well. Ms. Reno complained of a significant yeast infection to her abdominal and inguinal folds. I have recommended that she use the nystatin powder 3 times a day and dry disposable pad to be applied under this fold as well to promote dryness and healing. I have also explained to her that UTIs are common in elderly female population and that she could try vitamin C supplements to acidify the urine and prevent UTI. She would also be likely a good candidate for estrogen cream if it was determined that atrophic vaginitis was present. Ms. Reno is doing well today and plans are for her to be discharged back to [facility] to complete treatment for UTI. DISPOSITION: [facility]. DIET: Consistent carbohydrate. ACTIVITY: As tolerated. FOLLOW PLANS: Please follow up with Dr. Anaya regarding treatment of UTI and yeast infection to abdominal folds. TIME SPENT: Approximately 60 minutes was spent in the discharge of this patient , more than half that time was spent with her at the bedside, reviewing the events leading up this hospitalization, performing the physical examination, and reviewing the plan of care. RUTHIE FERREIRA NP [id number]/[facility] #: [id number] KENDAL
[2016-10-16] MEDS ORDERED: Loperamide CAP* 2 MG PO SCH (13:00)
[2016-10-17] MEDS ORDERED: Ascorbic Acid TAB* 500 MG PO SCH (09:00)
== END 2016-10-16 11:45 | DRG 690 ==
LOC: ED 16:01 → MED 22:16 → OBSVTOIN 10-15 14:38
PROVIDERS: ADMIT Hospitalist; ATTEND Internal Medicine
DX: N39.0 Urinary tract infection, site not specified (principal); B37.89 Other sites of candidiasis; I13.0 Hypertensive heart and chronic kidney disease with heart failure and stage 1 through stage 4 chronic kidney disease, or unspecified chronic kidney disease; E11.22 Type 2 diabetes mellitus with diabetic chronic kidney disease; I50.30 Unspecified diastolic (congestive) heart failure; I25.10 Atherosclerotic heart disease of native coronary artery without angina pectoris; F41.9 Anxiety disorder, unspecified; I48.91 Unspecified atrial fibrillation; E55.9 Vitamin D deficiency, unspecified; H40.9 Unspecified glaucoma; D50.9 Iron deficiency anemia, unspecified; K21.9 Gastro-esophageal reflux disease without esophagitis; N18.3 Chronic kidney disease, stage 3 (moderate); E78.5 Hyperlipidemia, unspecified; E03.9 Hypothyroidism, unspecified; I25.2 Old myocardial infarction; Z66 Do not resuscitate; Z85.42 Personal history of malignant neoplasm of other parts of uterus; Z86.718 Personal history of other venous thrombosis and embolism; Z79.01 Long term (current) use of anticoagulants; Z79.84 Long term (current) use of oral hypoglycemic drugs; Z79.4 Long term (current) use of insulin; Z79.82 Long term (current) use of aspirin
CPT/HCPCS: 36415; 70450; 71020; 80048; 80053; 81003; 81015; 83605; 83690; 83880; 85025; 86140; 87040; 87077; 87086; 87186; 87641; 93005; A9270-GY; J1956